=== PATIENT | male | born 1990 | race African-American/Black ===

== ENCOUNTER 2016-11-10 17:07 | Emergency (ER) | payer SELFPAY ==
[~2016-11-10] VITALS: Ht 188 cm; Wt 94.8 kg
[2016-11-10 17:07] VITALS: BP 128/98
[2016-11-10] MEDS ORDERED: TDAP [DIPH/PERTUSSIS/TET] 0.5 ML VIAL IM ONE ×2 (18:00→18:45)
== END 2016-11-10 18:53 | disposition home or self-care (01) ==
LOC: ER 17:09
DX: S61.212A Laceration without foreign body of right middle finger without damage to nail, initial encounter (principal); F17.200 Nicotine dependence, unspecified, uncomplicated; Z91.048 Other nonmedicinal substance allergy status; W25.XXXA Contact with sharp glass, initial encounter; Y93.89 Activity, other specified; Y92.89 Other specified places as the place of occurrence of the external cause; Y99.8 Other external cause status
CPT/HCPCS: 73140-TC; 90715; A4606; A6402; Z7610